=== PATIENT | female | born 1990 | race Two or more races ===

== ENCOUNTER 2022-03-08 14:47 | Emergency (ER) | payer BC, MEDICAID, OTHER ==
[~2022-03-08] VITALS: Ht 152.4 cm; Wt 72.7 kg
[~2022-03-08 14:47] MED LIST: PREN-96 PO
[2022-03-08 15:00] VITALS: BP 133/91
[2022-03-08] MEDS ORDERED: ACETAMINOPHEN 500 MG TAB PO ONE (15:45)
[2022-03-08] MEDS ORDERED: KETOROLAC TROMETH 60MG/2ML VIAL IM ONE (16:15)
[2022-03-08] MEDS ORDERED: PRED20TA2 PO (17:33)
[2022-03-08] MEDS ORDERED: IBUP800T27 PO (17:33)
[2022-03-08] MEDS ORDERED: AMOX-277 PO (17:33)
== END 2022-03-08 17:38 | disposition home or self-care (01) ==
LOC: ER 14:47
DX: G43.909 Migraine, unspecified, not intractable, without status migrainosus (principal); H66.92 Otitis media, unspecified, left ear; Z90.49 Acquired absence of other specified parts of digestive tract; Z90.710 Acquired absence of both cervix and uterus; F17.210 Nicotine dependence, cigarettes, uncomplicated
CPT/HCPCS: 70450; 96372; 99284; J1885